=== PATIENT | female | born 1960 | race Caucasian/White ===

== ENCOUNTER 2020-05-10 10:46 | Outpatient (CLI) | payer OTHER ==
--- NOTE | 2020-05-10 11:03 | RAD ---
XR Hip Lt 2-3 View INDICATION: Left hip pain COMPARISON: None FINDINGS: Bones: No acute osseous abnormality. Bone mineralization appears within normal limits. Hip joint: There are small marginal osteophytes affecting the femoral head and acetabulum consistent with mild left hip osteoarthritis. SI joints and symphysis pubis: There is moderate degenerative change of the left SI joint. The pubic symphysis appears within normal limits. Intrapelvic contents: Visualized bowel gas pattern is within normal limits. Surrounding soft tissues: Radiographically normal. IMPRESSION: 1. Mild osteoarthrosis of the left hip. Moderate left SI joint osteoarthrosis. 2. No acute fracture or subluxation.
--- NOTE | 2020-05-10 11:04 | RAD ---
XR Hip Rt 2-3 View INDICATION: Right hip pain COMPARISON: None FINDINGS: Bones: No acute osseous abnormality. Bone mineralization appears within normal limits. There is a 1.4 cm calcification overlying the right greater trochanter. Hip joint: There is mild right hip osteoarthrosis. SI joints and symphysis pubis: There is mild right SI joint osteoarthrosis. Pubic symphysis appears w ithin normal limits. Intrapelvic contents: Visualized bowel gas pattern is within normal limits. Surrounding soft tissues: Radiographically normal. IMPRESSION: 1. Calcific tendinosis involving the right greater trochanter. 2. Mild right hip osteoarthrosis. 3. Mild right SI joint osteoarthrosis.
== END 2020-05-10 10:47 | disposition home or self-care (01) ==
LOC: NAV RAD 10:46
PROVIDERS: ATTEND Internal Medicine
DX: M25.551 Pain in right hip (principal); M25.552 Pain in left hip; M16.0 Bilateral primary osteoarthritis of hip; M47.818 Spondylosis without myelopathy or radiculopathy, sacral and sacrococcygeal region; M25.851 Other specified joint disorders, right hip